=== PATIENT | male | born 1955 | race Caucasian/White ===

== ENCOUNTER 2017-09-17 10:23 | Emergency (ER) | payer OTHER ==
[~2017-09-17] VITALS: Ht 177.8 cm; Wt 77.1 kg
[2017-09-17 10:31] VITALS: BP 111/66
== END 2017-09-17 11:06 | disposition home or self-care (01) ==
LOC: ER 10:25
DX: J20.9 Acute bronchitis, unspecified (principal); I10 Essential (primary) hypertension
CPT/HCPCS: 99283; A4606; Z7610